=== PATIENT | female | born 1940 ===

== ENCOUNTER 2020-01-29 17:38 | Inpatient (IN) ==
[2020-01-29 22:00] LABS: Magnesium 2.1 mg/dL (1.9-2.7)
[2020-01-29 22:06] LABS: Troponin I 0.04 ng/mL (<0.03)
[2020-01-29 23:31] LABS: TSH Ultra Thyroid Stim Horm 1.81 mcIU/mL (0.34-5.60)
[2020-01-29 23:33] LABS: Free T4 3.05 ng/dL (0.61-1.12)
[2020-01-29] MEDS ORDERED: Iodixanol (CONTRAST) 320 MG/ML 100 ML SDV IV ONE (23:38)
[2020-01-30] MEDS ORDERED: Heparin DRIP 25,000 UNITS BAG 25,000 UNITS/500 ML BAG IV SCH ×2 (00:15→03:30)
[2020-01-30] MEDS ORDERED: Heparin 5000 UNITS/ML 1 mL VIAL IV SCH ×2 (01:00→03:30)
[2020-01-30 03:35] LABS: Troponin I 0.04 ng/mL (<0.03)
[2020-01-30 03:51] LABS: Blood Urea Nitrogen 20 mg/dL (6-24); EGFR African American 77.9 (>60); EGFR Non-African American 64.4 (>60)
[2020-01-30 05:41] LABS: ABS Eosinophils 0.1 10^3/ul (0-0.6); ABS Lymphocytes 3.2 10^3/ul (1.0-4.8); ABS Monocytes 0.5 10^3/ul (0-0.8); ABS Neutrophils 5.3 10^3/ul (1.5-7.7); Eosinophil % 1.3 %; Hematocrit 37 % (35-47); Hemoglobin 12.6 g/dL (12.0-16.0); Lymphocyte % 34.8 %; Mean Corpuscular HGB Conc 34 g/dL (31-36); Mean Corpuscular Hemoglobin 33 pg (27-31); Mean Corpuscular Volume 97 fL (80-97); Mean Platelet Volume 8.4 fL (7.4-10.4); Nucleated Red Blood Cells % 0.1; Platelet Count 177 10^3/uL (150-450); Red Blood Count 3.85 10^6 /uL (3.70-4.87); Red Cell Distribution Width 13 % (10-15); White Blood Count 9.2 10^3/uL (3.5-10.8)
[2020-01-30 05:46] LABS: INR 1.29 (0.82-1.09)
[2020-01-30 05:58] LABS: BUN/Creatinine Ratio 22.1 (8-20); Calcium 8.4 mg/dL (8.6-10.3); EGFR African American 76.8 (>60); EGFR Non-African American 63.5 (>60); Potassium 3.4 mmol/L (3.5-5.0)
[2020-01-30] MEDS ORDERED: Potassium Chlor 20 meq TAB.ER PO ONE (07:45)
[2020-01-30] MEDS: Dextran 70/Hypromellose Tears Eye Drops 15 ml BTL (for Artificials Tears) BOTH EYES SCH ×3 (08:19→21:34)
[2020-01-30] MEDS ORDERED: Influenza VAC *QUAD* 2020-21* 0.5 ML SYRINGE IM ONE (09:00)
[2020-01-30 09:12] LABS: Urine Appearance Clear; Urine Bacteria Absent (Absent); Urine Bilirubin Negative (Negative); Urine Blood 1+ (Negative); Urine Color Yellow; Urine Glucose Negative (Negative); Urine Ketones Negative (Negative); Urine Nitrite Negative (Negative); Urine Protein Negative (Negative); Urine Red Blood Cell 1+(3-5/hpf) (Absent); Urine Squamous Epithelial Cell Present (Absent); Urine Urobilinogen Negative (Negative); Urine White Blood Cell Trace(0-5/hpf) (Absent)
[2020-01-31] MEDS: Dextran 70/Hypromellose Tears Eye Drops 15 ml BTL (for Artificials Tears) BOTH EYES SCH ×3 (08:05→21:06)
[2020-02-01] MEDS: Atropine 0.1 MG/ML 10 ml SYR (1 mg) IV PUSH PRN ×2 (00:56→04:32)
[2020-02-01 05:53] LABS: ABS Eosinophils 0.1 10^3/ul (0-0.6); ABS Lymphocytes 2.3 10^3/ul (1.0-4.8); ABS Monocytes 0.5 10^3/ul (0-0.8); ABS Neutrophils 4.9 10^3/ul (1.5-7.7); Eosinophil % 1.3 %; Hematocrit 41 % (35-47); Hemoglobin 13.7 g/dL (12.0-16.0); Lymphocyte % 29.1 %; Mean Corpuscular HGB Conc 34 g/dL (31-36); Mean Corpuscular Hemoglobin 33 pg (27-31); Mean Corpuscular Volume 97 fL (80-97); Mean Platelet Volume 8.8 fL (7.4-10.4); Nucleated Red Blood Cells % 0.1; Platelet Count 165 10^3/uL (150-450); Red Blood Count 4.18 10^6 /uL (3.70-4.87); Red Cell Distribution Width 14 % (10-15); White Blood Count 7.9 10^3/uL (3.5-10.8)
[2020-02-01 06:10] LABS: BUN/Creatinine Ratio 26.4 (8-20); EGFR African American 60.4 (>60); EGFR Non-African American 49.9 (>60); Phosphorus 4.6 mg/dL (2.5-5.0); Potassium 4.3 mmol/L (3.5-5.0)
[2020-02-01] MEDS: Dextran 70/Hypromellose Tears Eye Drops 15 ml BTL (for Artificials Tears) BOTH EYES SCH ×3 (10:08→21:41)
[2020-02-01] MEDS: Heparin 5000 UNITS/ML 1 mL VIAL SUBCUT SCH (15:07)
[2020-02-02 03:42] LABS: Urine Appearance Cloudy; Urine Bilirubin Negative (Negative); Urine Blood Negative (Negative); Urine Color Yellow; Urine Glucose Negative (Negative); Urine Ketones Negative (Negative); Urine Nitrite Negative (Negative); Urine Protein Negative (Negative); Urine Specific Gravity 1.013 (1.010-1.030); Urine Urobilinogen Negative (Negative)
[2020-02-02] MEDS ORDERED: Polyethylene Glycol 3350 17 GM PACKET PO PRN (08:10)
[2020-02-02] MEDS: Heparin 5000 UNITS/ML 1 mL VIAL SUBCUT SCH ×2 (09:14→20:50)
[2020-02-02] MEDS: Dextran 70/Hypromellose Tears Eye Drops 15 ml BTL (for Artificials Tears) BOTH EYES SCH ×3 (09:15→20:49)
[2020-02-02] MEDS: Atropine 0.1 MG/ML 10 ml SYR (1 mg) IV PUSH PRN (09:25)
[2020-02-03] MEDS: Heparin 5000 UNITS/ML 1 mL VIAL SUBCUT SCH ×3 (10:05→20:22)
[2020-02-03] MEDS: Dextran 70/Hypromellose Tears Eye Drops 15 ml BTL (for Artificials Tears) BOTH EYES SCH ×4 (10:08→20:23)
[2020-02-04] MEDS: Heparin 5000 UNITS/ML 1 mL VIAL SUBCUT SCH ×2 (08:10→21:19)
[2020-02-04] MEDS: Dextran 70/Hypromellose Tears Eye Drops 15 ml BTL (for Artificials Tears) BOTH EYES SCH ×3 (08:13→21:19)
[2020-02-04 21:27] VITALS: BP 164/50
[2020-02-05] MEDS: Dextran 70/Hypromellose Tears Eye Drops 15 ml BTL (for Artificials Tears) BOTH EYES SCH ×2 (07:56→13:42)
[2020-02-05] MEDS: Heparin 5000 UNITS/ML 1 mL VIAL SUBCUT SCH (07:57)
== END 2020-02-05 21:04 | DRG 309 ==
LOC: MEDTELE 20:15 → ICU 01-31 10:22 → MED 02-01 14:59
PROVIDERS: ADMIT Internal Medicine; ATTEND Internal Medicine